=== PATIENT | female | born 1985 | race African-American/Black ===

== ENCOUNTER 2017-12-17 08:47 | Emergency (ER) | payer OTHER ==
[~2017-12-17] VITALS: Ht 154.9 cm; Wt 79.1 kg
[2017-12-17 08:50] VITALS: BP 123/57; TEMP 99.8
[2017-12-17] MEDS ORDERED: PROAIR HFA0.09 MG/AC IH (09:49)
[2017-12-17] MEDS ORDERED: ZITHROMAX Z PA250 MG PO (09:49)
[2017-12-17] MEDS ORDERED: PREDNISONE20 MG PO (09:49)
[2017-12-17 10:04] VITALS: PULSE 108
== END 2017-12-17 10:10 | disposition home or self-care (01) ==
LOC: COL.ER 08:47
DX: J40 Bronchitis, not specified as acute or chronic (principal); J98.01 Acute bronchospasm; F17.210 Nicotine dependence, cigarettes, uncomplicated; Z98.890 Other specified postprocedural states

== ENCOUNTER 2018-08-15 09:50 | Day surgery (SDC) | payer OTHER ==
[2018-08-15] VITALS (10 sets, daily range): BP systolic 106–120; BP diastolic 60–70; PULSE 68–83; TEMP 98–98.9
[~2018-08-15] VITALS: Ht 154.9 cm; Wt 82.1 kg
[~2018-08-15 09:50] MED LIST: PREDNISONE20 MG PO; PROAIR HFA0.09 MG/AC IH; ZITHROMAX Z PA250 MG PO
--- NOTE | 2018-08-15 11:26 | NUR ---
TO RM 5 AT 1047- CALL LIGHT IN REACH FAMILY AT BEDSIDE.
[2018-08-15] MEDS ORDERED: MOTRIN 800800 MG/TAB PO (14:35)
[2018-08-15] MEDS ORDERED: PERCOCET 325 MG1 TA2 PO (14:36)
--- NOTE | 2018-08-16 00:32 | NUR ---
HERE OVER NITE. SLEEPING WITHOUT AMBIEN THAT SHE ASKED FOR EARLIER
[2018-08-16 00:56] VITALS: BP 106/57; PULSE 62; TEMP 98.4
--- NOTE | 2018-08-16 00:57 | NUR ---
AWAKE RESTLESS.DANTE OFFERED OR WALK IN HALLS - DECLINES
[2018-08-16 08:10] VITALS: BP 118/68; PULSE 67; TEMP 98.2
--- NOTE | 2018-08-16 10:11 | NUR ---
Initial visit attempt; Patient resting, Community Affairs Director left card letting patient know of the availability of [facility] at [place] [place].
== END 2018-08-16 10:40 | disposition home or self-care (01) ==
LOC: SDCO 09:50 → OB 15:45 → SDCO 08-16 10:40
DX: D25.1 Intramural leiomyoma of uterus (principal); N72 Inflammatory disease of cervix uteri; N80.0 Endometriosis of uterus; N73.6 Female pelvic peritoneal adhesions (postinfective); N83.11 Corpus luteum cyst of right ovary; G89.29 Other chronic pain; R10.2 Pelvic and perineal pain; D50.9 Iron deficiency anemia, unspecified; F90.9 Attention-deficit hyperactivity disorder, unspecified type; Z83.3 Family history of diabetes mellitus; Z82.49 Family history of ischemic heart disease and other diseases of the circulatory system; F17.210 Nicotine dependence, cigarettes, uncomplicated
CPT/HCPCS: OP; A4314; J0690; J1100; J1885; J2270; J2405; J3010; J7120

== ENCOUNTER 2021-05-06 09:36 | Emergency (ER) | payer OTHER ==
[~2021-05-06] VITALS: Ht 154.9 cm; Wt 81.8 kg
[~2021-05-06 09:36] MED LIST changes: +MOTRIN 800800 MG/TAB PO; +PERCOCET 325 MG1 TA2 PO
[2021-05-06 10:37] VITALS: BP 111/72; TEMP 98.3
[2021-05-06 11:45] VITALS: PULSE 75
== END 2021-05-06 11:45 | disposition home or self-care (01) ==
LOC: COL.ER 09:36
DX: S01.112A Laceration without foreign body of left eyelid and periocular area, initial encounter (principal); W20.8XXA Other cause of strike by thrown, projected or falling object, initial encounter

== ENCOUNTER 2021-10-10 12:26 | Emergency (ER) | payer OTHER ==
[~2021-10-10] VITALS: Ht 154.9 cm; Wt 81.8 kg
[2021-10-10 12:32] VITALS: BP 160/95; PULSE 55; TEMP 99
== END 2021-10-10 14:40 | disposition left against medical advice (07) ==
LOC: COL.ER 12:26
DX: H57.12 Ocular pain, left eye (principal); Z87.891 Personal history of nicotine dependence; Z28.310 Unvaccinated for COVID-19